=== PATIENT | female | born 2000 | race Caucasian/White ===

== ENCOUNTER 2022-07-10 19:34 | Emergency (ER) | payer SELFPAY ==
[~2022-07-10] VITALS: Ht 165.1 cm; Wt 147.7 kg
[2022-07-10 21:46] LABS: COLLECTION METHOD CLEAN CATCH
[2022-07-10 21:50] LABS: BASO % 0.4 % (0.0-2.0); EOS # 0.1 K/mm3 (0.0-0.7); EOS % 0.6 % (0.0-4.0); GRAN # 7.2 K/mm3 (1.4-6.5); GRAN % 66.4 % (42.2-75.2); HEMATOCRIT 37.5 % (37.0-47.0); HEMOGLOBIN 13.1 g/dl (12.5-16.0); LYMPH # 2.9 K/mm3 (1.2-3.4); MEAN CELL VOLUME 89 fl (80.0-100.0); MEAN CORPUSCULAR HEMOGLOBIN 31 pg (27-31); MEAN CORPUSCULAR HGB CONC 35 g/dl (33.0-37.0); MEAN PLATELET VOLUME 11.3 fl (7.4-10.4); MONO # 0.6 K/mm3 (0.1-0.6); MONO % 5.4 % (1.7-9.3); PLATELET COUNT 231 K/mm3 (130-400); RED BLOOD COUNT 4.22 M/mm3 (4.10-5.30); REDCELL DISTRIBUTION WIDTH-CV 11.9 % (11.5-14.5)
[2022-07-10 22:02] LABS: ALANINE AMINOTRANSFERASE 27 U/L (0-55); ALBUMIN 3.6 gm/dL (3.5-5.0); ALKALINE PHOSPHATASE 66 U/L (40-150); ANION GAP 10 mmol/L (7-16); AST,SGOT 15 U/L (5-34); BILIRUBIN,TOTAL 0.1 mg/dL (0.2-1.2); BLOOD UREA NITROGEN 12 mg/dL (7-19); CARBON DIOXIDE 22 mmol/L (22-29); CHLORIDE 106 mmol/L (98-107); CREATININE, serum 0.66 mg/dL (0.57-1.11); GLUCOSE 115 mg/dL (70-99); POTASSIUM 3.9 mmol/L (3.5-4.5); SODIUM 138 mmol/L (136-145); TOTAL PROTEIN 7.2 gm/dL (6.2-8.1)
[2022-07-10 22:13] LABS: TROPONIN-I < 0.010 ng/mL (0.00-0.033)
[2022-07-10 22:15] LABS: URINE APPEARANCE Clear (CLEAR/HAZY); URINE COLOR Yellow (YELLOW)
[2022-07-10 22:17] LABS: PH 5.5 (5.0-8.5); URINE BLOOD Negative (NEGATIVE); URINE GLUCOSE Negative (NEGATIVE); URINE KETONE Negative (NEGATIVE); URINE NITRATE Negative (NEGATIVE); URINE PROTEIN(semi-quant) Negative (NEGATIVE); URINE UROBILINOGEN 0.2 E.U/dL (0.2-1.0)
[2022-07-10 22:20] LABS: MUCOUS Present (NOT PRESENT); URINE BACTERIA Rare /hpf (NONE SEEN); URINE CALCIUM OXALATE CRYSTAL Present (NOT PRESENT)
[2022-07-10] MEDS ORDERED: ZOFRAN ODT4 MG PO (22:21)
[2022-07-10 22:35] LABS: HCG,QUANTITATIVE 73263 mIU/mL
[2022-07-10 22:39] VITALS: BP 147/97; PULSE 83; TEMP 98.4
== END 2022-07-10 22:39 | disposition home or self-care (01) ==
LOC: COL.ER 19:34
PROVIDERS: Emergency Medicine
DX: O99.891 Other specified diseases and conditions complicating pregnancy (principal); M54.50 Low back pain, unspecified; M54.6 Pain in thoracic spine; R07.9 Chest pain, unspecified; O21.9 Vomiting of pregnancy, unspecified; Z3A.08 8 weeks gestation of pregnancy
CPT/HCPCS: J2405

== ENCOUNTER 2023-01-07 18:46 | Emergency (ER) | payer MEDICAID ==
[~2023-01-07] VITALS: Ht 165.1 cm; Wt 148.6 kg
[~2023-01-07 18:46] MED LIST: ASPIRIN 81M81 MG/TA2 PO; MACROBID 1100 MG/CAP PO; NORMODYNE200 MG PO; PRENATAL MVI PO; ZOFRAN ODT4 MG PO
[2023-01-07 18:52] VITALS: TEMP 98.2
[2023-01-07 20:23] VITALS: BP 130/70; PULSE 84
== END 2023-01-07 20:24 | disposition home or self-care (01) ==
LOC: COL.ER 18:46
DX: O99.891 Other specified diseases and conditions complicating pregnancy (principal); M54.50 Low back pain, unspecified; Z3A.34 34 weeks gestation of pregnancy

== ENCOUNTER 2023-01-10 11:39 | Outpatient (CLI) | payer MEDICAID ==
[~2023-01-10] VITALS: Ht 165.1 cm; Wt 148.6 kg
[2023-01-10 11:45] VITALS: BP 120/69; PULSE 111; TEMP 98.1
[2023-01-10 12:45] VITALS: BP 138/70; PULSE 90
--- NOTE | 2023-01-10 12:48 | NUR ---
1145 PATIENT HERE FROM HOME WITH COMPLAINTS OF DECREASED MOVEMENT AND VOMITED THIS AM. STATES SHES NOT SURE IF SHE PEED WHEN VOMITED OR LEAKING FLUID, PATIENT VERY ANXIOUS DUE TO LAST SHE LOST BABY 2 WEEKS AFTER AT 26 WEEKS. EFM ON FHT 140 ACCELERATIONS NOTED. VITAL SIGNS WNL. AMNIOTRACE DONE AT THIS TIME AND NEGATIVE. ASSESSMENT COMPLETED. FOB AT BEDSIDE. DR GUEVARA CALLED WITH ALL ABOVE INFORMATION. ORDERS GIVEN TO DIMISS PATIENT TO HOME AFTER REACTIVE STRIP.
--- NOTE | 2023-01-10 12:52 | NUR ---
1245 REACTIVE STRIP NOTED. PATIENT WANTS TO STAY FOR A COUPLE MORE BLOOD PRESSURE, SHE IS WORRIED BP IS INCREASING. NO OTHER NEEDS OR CHANGES NOTED.
[2023-01-10 13:03] VITALS: BP 144/69; PULSE 83
--- NOTE | 2023-01-10 13:04 | NUR ---
1300 PATIENT STATES SHE HAS DEFINETLY FELT BABY MOVE NOW. FEELING BETTER ABOUT BABY AND BLOOD PRESSURE. ALL DISCHARGE INSTRUCTIONS GIVEN WITH MAURICIO AUNSTUARTTANDING. DENIES NEEDS.
== END 2023-01-10 13:06 | disposition home or self-care (01) ==
LOC: LDRO → LDR 11:45 → LDRO 13:06
DX: O36.8130 Decreased fetal movements, third trimester, not applicable or unspecified (principal); Z3A.33 33 weeks gestation of pregnancy
CPT/HCPCS: OP

== ENCOUNTER 2023-01-30 06:48 | Inpatient (IN) | payer MEDICAID ==
[~2023-01-30] VITALS: Ht 165.2 cm; Wt 152.7 kg
[2023-01-30] VITALS (16 sets, daily range): BP systolic 93–137; BP diastolic 50–92; PULSE 70–102; TEMP 98.3–99
[2023-01-30 08:05] LABS: BASO % 0.2 % (0.0-2.0); EOS % 0.5 % (0.0-4.0); GRAN # 4.2 K/mm3 (1.4-6.5); GRAN % 64.7 % (42.2-75.2); HEMATOCRIT 40.3 % (37.0-47.0); HEMOGLOBIN 13.6 g/dl (12.5-16.0); LYMPH # 1.8 K/mm3 (1.2-3.4); LYMPH % 28.1 % (20.0-51.0); MEAN CELL VOLUME 87 fl (80.0-100.0); MEAN CORPUSCULAR HEMOGLOBIN 30 pg (27-31); MEAN CORPUSCULAR HGB CONC 34 g/dl (33.0-37.0); MEAN PLATELET VOLUME 11.8 fl (7.4-10.4); MONO # 0.4 K/mm3 (0.1-0.6); MONO % 6.2 % (1.7-9.3); PLATELET COUNT 206 K/mm3 (130-400); RED BLOOD COUNT 4.61 M/mm3 (4.10-5.30); REDCELL DISTRIBUTION WIDTH-CV 12.9 % (11.5-14.5)
[2023-01-30] MEDS ORDERED: LEXAPRO 10MG10 MG PO (18:41)
[2023-01-30] MEDS ORDERED: TRANDATE300 MG PO (18:42)
[2023-01-31 00:10] VITALS: BP 136/80; PULSE 94; TEMP 98.6
[2023-01-31 04:30] VITALS: BP 135/72; PULSE 91; TEMP 98.5
[2023-01-31 08:40] VITALS: BP 122/82; PULSE 99; TEMP 98.9
[2023-01-31 20:00] VITALS: BP 137/67; PULSE 93; TEMP 98.5
[2023-02-01 08:30] VITALS: BP 133/77; PULSE 89; TEMP 98.7
--- NOTE | 2023-02-01 09:55 | NUR ---
Initial visit; Patient thanked Corrosion Technician for offering congratulations and God's blessings for the of her daughter. Corrosion Technician thanked new mother for choosing [facility].
[2023-02-01] MEDS ORDERED: NORMODYNE200 MG PO (12:00)
[2023-02-01] MEDS ORDERED: LOVENOX 4040 MG/0.4 SQ (12:00)
[2023-02-01] MEDS ORDERED: IBU800 M1 PO (12:01)
[2023-02-01] MEDS ORDERED: PERCOCET 325 MG1 TA2 PO (12:01)
[2023-02-01 15:30] VITALS: BP 147/80; PULSE 100; TEMP 99.7
[2023-02-01 22:00] VITALS: BP 154/97; PULSE 95; TEMP 99.2
[2023-02-02 07:40] VITALS: BP 140/69; PULSE 89; TEMP 98
[2023-02-02] MEDS ORDERED: NORMODYNE300 MG PO (09:27)
[2023-02-02 21:00] VITALS: BP 152/82; PULSE 86; TEMP 98.5
[2023-02-03 08:26] VITALS: BP 148/85; PULSE 92; TEMP 98.8
--- NOTE | 2023-02-03 10:25 | NUR ---
Follow-up; Patient thanked Clipper Operator for looking in on her again this morning and wishing her well and God's blessings.
== END 2023-02-03 11:15 | disposition home or self-care (01) | DRG 787 ==
LOC: OB 06:48
PROVIDERS: ADMIT Student in an Organized Health Care Education/Training Program
PROC: 10D00Z1 Extraction of Products of Conception, Low, Open Approach (ICD-10-PCS; principal; 2023-01-30)
DX: O34.211 Maternal care for low transverse scar from previous cesarean delivery (principal); O10.92 Unspecified pre-existing hypertension complicating childbirth; Z3A.37 37 weeks gestation of pregnancy; Z37.0 Single live birth; O99.214 Obesity complicating childbirth; O24.420 Gestational diabetes mellitus in childbirth, diet controlled; O99.344 Other mental disorders complicating childbirth; F41.8 Other specified anxiety disorders; O35.8XX0 Maternal care for other (suspected) fetal abnormality and damage, not applicable or unspecified; Z90.49 Acquired absence of other specified parts of digestive tract; Z90.89 Acquired absence of other organs; Z88.0 Allergy status to penicillin
CPT/HCPCS: J0171; J0665; J0690; J1100; J1650; J1885; J2371; J2405; J2590; J7120